=== PATIENT | male | born 1975 | race African-American/Black ===

== ENCOUNTER 2019-09-15 09:36 | Day surgery (SDC) | payer MEDICAID ==
[~2019-09-15] VITALS: Ht 175.3 cm; Wt 75.9 kg
[~2019-09-15 09:36] MED LIST: HYDR-1475 PO; SODIUM CHLORIDE 0.9% 1,000 ML IV ONE; SODIUM CHLORIDE 0.9% 1,000 ML ONE
[2019-09-15 10:43] LABS: GLUCOMETER DEV NAME(LOC) SDS.; GLUCOSE,POINT OF CARE 107 MG/DL (70-110)
[2019-09-15] MEDS ORDERED: LIDOCAINE 1% 10 ML VIAL INJ ONE (12:00)
[2019-09-15] MEDS ORDERED: PROPOFOL 1% 20 ML VIAL IVP ONE (12:00)
[2019-09-15] MEDS ORDERED: OXYGEN THERAPY IH SCH (20:00)
== END 2019-09-15 12:45 | disposition home or self-care (01) ==
LOC: SURGERY 09:36
PROVIDERS: ATTEND Specialist
DX: D50.9 Iron deficiency anemia, unspecified (principal); K63.5 Polyp of colon; I10 Essential (primary) hypertension; E11.9 Type 2 diabetes mellitus without complications; Z79.899 Other long term (current) drug therapy; Z80.0 Family history of malignant neoplasm of digestive organs; Z88.8 Allergy status to other drugs, medicaments and biological substances
CPT/HCPCS: 45385; 82962; 88305; C1769; J2704; J3490; J7030

== ENCOUNTER 2020-11-24 17:01 | Emergency (ER) | payer OTHER ==
[~2020-11-24] VITALS: Ht 175.3 cm; Wt 81.4 kg
[~2020-11-24 17:01] MED LIST changes: -HYDR-1475 PO; +LOSA25TA21 PO; +METF-960 PO; +NIFE90TA63 PO; -SODIUM CHLORIDE 0.9% 1,000 ML IV ONE; -SODIUM CHLORIDE 0.9% 1,000 ML ONE
[2020-11-24] MEDS ORDERED: QUET25TA PO (19:48)
[2020-11-24] MEDS ORDERED: MIRT-89 PO (19:48)
[2020-11-24 20:14] LABS: GLUCOSE,POINT OF CARE 183 MG/DL (70-110)
[2020-11-24 20:21] LABS: COVID AG,FIA SOURCE NASOPHARYNGEAL
[2020-11-24 20:29] LABS: BASOPHILS % (AUTO) 0.5 % (0.0-2.0); EOSINOPHILS % (AUTO) 0.4 % (1.0-6.0); HEMATOCRIT 47.9 % (41-53); HEMOGLOBIN 16.1 g/dL (13.5-17.5); LYMPHOCYTES # (AUTO) 2.1 K/uL (1.0-4.8); LYMPHOCYTES % (AUTO) 18.8 % (22.0-44.0); MEAN CORPUSCULAR HEMOGLOBIN 29.9 pg (26.0-34.0); MEAN CORPUSCULAR HGB CONC 33.5 G/dL (31.0-37.0); MEAN CORPUSCULAR VOLUME 89 fL (80-100); MONOCYTES # (AUTO) 1.3 K/uL (0.1-1.0); MONOCYTES % (AUTO) 11.3 % (2.0-9.0); NEUTROPHILS # (AUTO) 7.8 K/uL (1.8-7.7); PLATELET COUNT (AUTO) 249 K/uL (150-450); RED BLOOD CELL COUNT(AUTO) 5.38 MIL/uL (4.50-5.90); RED CELL DISTRIBUTION WIDTH 13.8 % (11.5-14.5)
[2020-11-24 20:37] LABS: ANION GAP 9 mmol/L (8-16); CALCIUM, TOTAL 9.3 mg/dL (8.8-10.5); CARBON DIOXIDE 26 mmol/L (22-29); CHLORIDE 96 mmol/L (98-107); CREATININE 1.48 mg/dL (0.60-1.30); GLOMERULAR FILTR. RATE CALC > 60 mL/min (>60); GLUCOSE,RANDOM 186 mg/dL (70-110); POTASSIUM 4.1 mmol/L (3.5-5.1); SODIUM SERUM 131 mmol/L (136-145); UREA NITROGEN, BLOOD 21 mg/dL (7-18)
[2020-11-24] MEDS ORDERED: IOHEXOL 350 MG/ML 100 ML VIAL ONE (21:18)
[2020-11-24] MEDS ORDERED: SODIUM CHLORIDE 0.9% 100 ML ONE (21:18)
[2020-11-24] MEDS: SODIUM CHLORIDE 0.9% 1,000 ML IV ONE (22:39)
[2020-11-24] MEDS: CefTRIAXone SODIUM 2 GM in DEXTROSE 5%-WATER 50 ML IV ONE (22:39)
[2020-11-24] MEDS: DEXAMETHASONE SOD PHOS 4 MG/ML 5 ML VIAL IVP ONE (22:45)
[2020-11-24] MEDS: MORPHINE SULFATE 4 MG/ML SYRINGE IVP ONE (23:00)
[2020-11-24] MEDS: ONDANSETRON HCL 4 MG/2 ML VIAL IVP ONE (23:00)
[2020-11-24] MEDS ORDERED: MORPHINE SULFATE 2 MG/ML SYRINGE IVP ONE (23:00)
[2020-11-25] MEDS: CLINDAMYCIN 900 MG/D5% WATER 50 ML IV ONE (00:30)
[2020-11-25] MEDS: KETOROLAC TROMETHAMINE 30 MG/ML VIAL IVP ONE (01:16)
[2020-11-25] MEDS: NIFEdipine 60 MG ER TABLET PO ONE (01:16)
[2020-11-25 03:30] VITALS: BP 153/77
== END 2020-11-25 04:15 ==
LOC: EMS 17:05
DX: U07.1 COVID-19 (principal); J36 Peritonsillar abscess; E11.65 Type 2 diabetes mellitus with hyperglycemia; E11.9 Type 2 diabetes mellitus without complications; I11.9 Hypertensive heart disease without heart failure; F32.9 Major depressive disorder, single episode, unspecified; F17.210 Nicotine dependence, cigarettes, uncomplicated; F12.90 Cannabis use, unspecified, uncomplicated; Z79.899 Other long term (current) drug therapy
CPT/HCPCS: 36415; 70491; 71045; 80048; 82962; 83605; 85025; 87040; 87426; 87430; 96365; 96367; 96375 ×2; 99285; A9575; J0696; J1100; J1885; J2270; J2405; J3490; J7030; J7050; J7060

== ENCOUNTER → 2023-10-15 | Outpatient (CLI) | payer OTHER ==
[~2023-10-15] MED LIST changes: -LOSA25TA21 PO; -METF-960 PO; +MIRT-89 PO; -NIFE90TA63 PO; +QUET25TA PO; +REGADENOSON 0.4 MG/5 ML PF SYRINGE IVP ONE; +SESTAMIBI TC99M/UD ISOTOPE 1 EA INJ INJ ONE; +SESTAMIBI TC99M/UD ISOTOPE 1 EA INJ ONE
[2023-10-15] MEDS: REGADENOSON 0.4 MG/5 ML PF SYRINGE IVP ONE (10:19)
== END | disposition home or self-care (01) ==
LOC: CARDMN 08:26
PROVIDERS: ATTEND Family Medicine
DX: I25.119 Atherosclerotic heart disease of native coronary artery with unspecified angina pectoris (principal)
CPT/HCPCS: 78452; A9500; J2785